=== PATIENT | male | born 2000 | race African-American/Black ===

== ENCOUNTER 2025-04-26 12:09 | Emergency (ER) | payer MEDICAID ==
[~2025-04-26] VITALS: Ht 185.4 cm; Wt 99.0 kg
[2025-04-26 12:33] VITALS: O2SAT 98
[2025-04-26 13:46] VITALS: BP 129/75; PULSE 80; RESP 15; TEMP 36.7; O2SAT 99
== END 2025-04-26 13:48 | disposition home or self-care (01) ==
LOC: ER 12:13
DX: S61.215D Laceration without foreign body of left ring finger without damage to nail, subsequent encounter (principal); S61.217D Laceration without foreign body of left little finger without damage to nail, subsequent encounter; X58.XXXD Exposure to other specified factors, subsequent encounter
CPT/HCPCS: 99282